=== PATIENT | male | born 1985 | race Caucasian/White ===

== ENCOUNTER 2018-04-27 20:40 | Inpatient (IN) | payer OTHER ==
[~2018-04-27] VITALS: Ht 188 cm; Wt 90.7 kg
--- NOTE | 2018-04-27 21:05 | NUR ---
PRE ADMISSION NOTE Pt is a 32 y/o male seen at intake. Pt is A&Ox4 and can ambulate with steady gait. Pt appears flushed, anxious and presents with nausea with increased HR. Pt reports drinking Smirnoff vodka 750 ml daily for 1 month, last intake of 1 pint this monring. Pt reports going to the ER d/t severe intoxication and receiving Librium. Pt reports also taking "9 pills" of Librium this morning and afternoon. Pt reports that he was taking 40-50 capsules or 50 g of Kratom daily for 6 months, last intake on 04/25/18. Pt states, "I'm most uncomfortable right now because of the Kratom." Pt denies history of allergies. Pt reports history of seizures r/t withdrawal, DT, hallucinations in September 2017. Pt reports PMH of pancreatitis and left knee surgery. Vitals: BP 131/73, HR 97, 02 98%, RR 18, T 98.5, and denies pain. Pt is stable to come to unit. Will endorse care to primary care nurse for continuation of care upon arrival on unit.
--- NOTE | 2018-04-27 21:30 | NUR ---
ADMISSION NOTE Pt is a 32 y/o male who is being admitted for medically supervised withdrawal from ETOH and Opiates. The pt is mildly intoxicated from ETOH and is moderately experiencing s/s of withdrawal. However, pt is not intoxicated from Opiates and is severely experiencing s/s of withdrawal. Pt appears disheveled and unkempt. He is flushed and sweating. Pt c/o anxiety and body aches. He is A/O to person, place, time, and purpose. Pt states that common withdrawal symptoms typically include sweats, chills, body aches, restless legs, anxiety, insomnia, hallucinations, and DTS. Pt does state that he has a h/o withdrawal induced seizures. Pt states the last time I went through withdrawals in September I had a small seizure, I got the DTs, and I began to hallucinate. It was awful. Pt states current substance use as follows: 1. ETOH: 750ml of Vodka daily for the past month. Pt states last drink was 473ml on 04/27/18 at 0900. He first began drinking 2 yrs ago. 2. Kratom: 50g daily for the past 6 months. Pt states the last use was 50g on 04/25/18. He first began using 6 mos ago. Pt states that he seeking treatment today because I am tired of feeling like shit. I constantly feel beaten and broken. Pt states that he stan with stress in his life by drinking. Pt knows his behavior is self destructive. It has ruined my relationship with my family and my girlfriend, and if I dont stop it will ruin my job. Pt states that his family threatened to cut him off if he didnt get help and his girlfriend has already left him. 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 Pt states that he is ready to focus on recovery. I cant fuck this up. I want to feel better and I want to put my life back together. Pt states they are willing to go AA and to an Outpatient Program once he leaves [facility]. Pt also states that his family is a good support system for him. V/S: P:97, RR:16, SPO2:98, BP:131/73. Pt denies any pain. Pts pulse is strong and regular. Pts respirations are unlabored and even. Skin is intact. Pt follows a regular diet while at home. Pt states NKA. Pt denies smoking cigarettes, but does vape. Pt does not have a PCP or a psychiatrist. Pt did have pancreatitis sometime in October of 2016. Pt has also had ACL knee surgery at the beginning of 2017. Pt denies all other medical and psychiatric Hx. Pt was educated on the plan of care including detox, group and 1:1 therapy, and discharge planning. Pt encouraged to be open and honest and verbalize what is feeling both physically and mentally. He was given positive reinforcement and support for his choice to seek recovery.
[2018-04-27] MEDS ORDERED: BUPRENORPHINE HCL 2 MG TAB.SUBL SL ONE (22:00)
[2018-04-27] MEDS ORDERED: MAGNESIUM HYDROXIDE 30 ML LIQUID UDC PO PRN (22:00)
[2018-04-27] MEDS ORDERED: ONDANSETRON ODT 4 MG TAB.RAPDIS SL PRN (22:00)
[2018-04-27] MEDS ORDERED: LOPERAMIDE HCL 2 MG CAPSULE PO PRN ×2 (22:00)
[2018-04-27] MEDS ORDERED: DIAZEPAM 5 MG TABLET PO PRN (22:00)
[2018-04-27] MEDS ORDERED: LORAZEPAM 2 MG/1 ML VIAL IM PRN (22:00)
[2018-04-27] MEDS ORDERED: THIAMINE HCL 200 MG/2 ML VIAL IM ONE (22:00)
[2018-04-27] MEDS ORDERED: ACETAMINOPHEN 325 MG TABLET PO PRN (22:00)
[2018-04-27] MEDS ORDERED: DIAZEPAM 10 MG TABLET PO PRN (22:00)
[2018-04-27] MEDS ORDERED: BUPRENORPHINE HCL 2 MG TAB.SUBL SL PRN (22:00)
[2018-04-27] MEDS ORDERED: MAG HYDROX/AL HYDROX/SIMETH 30 ML LIQUID UDC PO PRN (22:00)
[2018-04-27] MEDS ORDERED: MIRALAX 17 GM POWD.PACK PO PRN (22:00)
[2018-04-27 22:28] LABS: *AMPHETAMINE, URINE NEGATIVE (NEGATIVE); *BARBITURATE, URINE NEGATIVE (NEGATIVE); *CANNABINOID, URINE NEGATIVE (NEGATIVE); *COCCAINE, URINE NEGATIVE (NEGATIVE); *OPIATE, URINE NEGATIVE (NEGATIVE); *PHENCYCLIDINE SCREEN,URINE NEGATIVE (NEGATIVE)
[2018-04-27] MEDS: DIAZEPAM 10 MG TABLET PO PRN (22:55)
--- NOTE | 2018-04-27 22:55 | NUR ---
PRN VALIUM ADMINISTRATION Valium 20mg given for CIWA 28. Pt c/o anxiety, agitation, tremors, sweats, abdominal cramping, nausea, body aches, "foggy thinking", and difficulty conecntrating. V/S: T:98.3, P:70, RR:16, SPO2:100, BP:139/78. Will reassess pt in 1 hr.
--- NOTE | 2018-04-27 23:55 | NUR ---
PRN VALIUM REASSESSMENT Pt states only mild relief from s/s. Pt states they "still feel pretty crappy". Pt states feeling restless, pins and needles, anxiety, insomnia, sweats, and hot flashes. Will administer Clonidine and Benadryl
[2018-04-27] MEDS: diphenhydrAMINE 50 MG CAPSULE PO PRN (23:56)
[2018-04-27] MEDS: CLONIDINE HCL 0.1 MG TABLET PO PRN (23:56)
--- NOTE | 2018-04-27 23:56 | NUR ---
PRN CLONIDINE AND BENADRYL ADMINISTRATION Clonidine 0.1mg and Benadryl 50mg. Pt c/o sweats, anxiety, and agitation. Will reassess pt in 1 hr.
--- NOTE | 2018-04-28 | NUR ---
CIWA AND COWS ASSESSMENT CIWA 28 and COWS 19. Pt c/o anxiety, agitation, tremors, sweats, abdominal cramping, nausea, body aches, "foggy thinking", and difficulty concentrating. V/S: T:98.3, P:70, RR:16, SPO2:100, BP:139/78.
[2018-04-28 00:03] LABS: BASOPHILS % (AUTO) 0.3 % (0.0-2.0); EOSINOPHILS % (AUTO) 0.3 % (0.0-7.0); HEMATOCRIT 45.9 % (36.7-47.1); HEMOGLOBIN 15.9 g/dL (12.5-16.3); LYMPHOCYTES # (AUTO) 3.1 K/uL (20.0-40.0); LYMPHOCYTES % (AUTO) 31.4 % (20.5-51.5); MEAN CORPUSCULAR HEMOGLOBIN 32.1 uug (23.8-33.4); MEAN CORPUSCULAR HGB CONC 35 g/dL (32.5-36.3); MEAN CORPUSCULAR VOLUME 92.7 fL (73.0-96.2); MONOCYTES # (AUTO) 1.1 K/uL (2.0-10.0); MONOCYTES % (AUTO) 10.9 % (0.0-11.0); NEUTROPHILS # (AUTO) 5.7 K/uL (1.8-8.9); NEUTROPHILS % (AUTO) 57.1 % (38.5-71.5); PLATELET COUNT (AUTO) 262 K/uL (152-348); RED BLOOD CELL COUNT(AUTO) 4.96 MIL/uL (4.06-5.63); WHITE BLOOD COUNT (AUTO) 9.9 K/uL (3.6-10.2)
[2018-04-28 00:06] VITALS: BP 139/78
[2018-04-28 00:39] LABS: BILIRUBIN,TOTAL 0.8 mg/dL (0.2-1.0); MAGNESIUM 1.8 mg/dL (1.8-2.4); POTASSIUM 3.6 mmol/L (3.5-5.1); TOTAL PROTEIN, SERUM 8.1 g/dL (6.4-8.2)
--- NOTE | 2018-04-28 00:56 | NUR ---
PRN CLONIDINE AND BENADRYL REASSESSMENT Pt still feels anxious and continues to pace in the hallways. Advised pt to maybe take a shower to help relax him. Pt agreed. Will continue to monitor pt.
[2018-04-28] MEDS: METHOCARBAMOL 750 MG TABLET PO PRN (01:13)
[2018-04-28] MEDS: HYDROXYZINE PAMOATE 25 MG CAPSULE PO PRN (01:13)
--- NOTE | 2018-04-28 01:13 | NUR ---
PRN ROBAXIN AND VISTARIL ADMINISTRATION Robaxin 750mg and Vistaril 50mg given for body aches and anxiety/agitation. Pt c/o 6/10 generalized pain. Will reassess pt in 1 hr.
--- NOTE | 2018-04-28 02:13 | NUR ---
PRN ROBAXIN AND VISTARIL REASSESSMENT' Pt is in bed w/ his eyes closed. Pt's respirations are unlabored and even.
[2018-04-28 03:45] VITALS: BP 133/77
--- NOTE | 2018-04-28 03:45 | NUR ---
CIWA AND COWS ASSESSMENT CIWA 25 abd COWS 17. Pt c/o anxiety, agitation, tremors, sweats, abdominal cramping, nausea, body aches, "foggy thinking", and difficulty concentrating. V/S: T:98.4, P:82, RR:16, SPO2:99, BP:133/77.
[2018-04-28] MEDS: DIAZEPAM 10 MG TABLET PO PRN (03:54)
--- NOTE | 2018-04-28 03:54 | NUR ---
PRN VALIUM ADMINISTRATION Valium 20mg given for CIWA 25 and COWS 17. Pt presenting w/ insomnia and is pacing the hallways. Will reassess pt in 1hr.
--- NOTE | 2018-04-28 04:54 | NUR ---
PRN VALIUM REASSESSMENT Pt is in bed w/ his eyes closed. Pt's respirations are unlabored and even.
[2018-04-28 04:59] LABS: THYROID STIMULATING HORMONE 2.741 mIU/mL (0.358-3.740)
--- NOTE | 2018-04-28 07:11 | NUR ---
END OF SHIFT NOTE Endorsed pt to oncoming nurse. Pt is a 32 y/o male A/O to person, place, time, and purpose. Pt was admitted for medically supervised withdrawal from ETOH and Kratom. Pt was midly intoxicated from ETOH upon arrival, but did show signs of withdrawal from Opiates. Pt began to present w/ anxious mood, agitation, restlessness, body aches, sweats, chills, hot flashes, tremors, nausea, insomnia, and a flat affect. PRN Valium 20mg x 2, Clonidine 0.1mg, Benadryl 50mg, Robaxin 750mg, and Vistaril 50mg were given and noted partially effective. Pt denies any S/I and H/I. Pts fluid intake was 900ml and he slept for 3hrs. Last CIWA 25 and COWS 17 @ 0345. Pt stated that at home he used to take 300-600mg of Gabapentin and Trazodone 100-150mg, endorsed this oncoming nurse. Call light is within reach. Pt was educated on keeping an open line of communication.
--- NOTE | 2018-04-28 07:30 | NUR ---
Start of Shift Head Control Clerk received report on 32 year old male admitted to [facility] on 04/27/18 for medical management of ETOH and Kratum withdrawals. Pt endorses NKDA, full code and regular diet. Endorses a PMH history positive for Pancreatitis. Denies PPH. Pt to be started on a Valium taper this morning, last CIWA 25 and COWS 14, per NOC report. Pt was administered 20mg Valium(withdrawals) x2, Clonidine(anxiety), Benadryl(insomnia), Robaxin(myalgia) and Vistaril(anxiety) as PRN medications on NOC, per report. Head Control Clerk encounters pt in pts room with pt resting with eyes closed. Even and unlabored respirations noted. Bed in low position with wheels locked and side rails up x2. Will continue to monitor, support and encourage according to plan of care
[2018-04-28 08:00] VITALS: BP 123/84
--- NOTE | 2018-04-28 08:00 | NUR ---
CIWA 21/COWS 23 Pt is diaphoretic, tremulous, anxious, restless, with piloerection of the skin and stuffy nose and watery eyes and complaints of nausea, myalgia, chills and tactile hallucinations. Will continue to monitor, support and encourage according to plan of care.
[2018-04-28] MEDS ORDERED: TUBERCULIN,PURIF.PROT.DERIV. 5 TU/0.1 ML TEST ID ONE (09:00)
[2018-04-28] MEDS ORDERED: 5 DAY TAPER VALIUM-SERENITY PROTOCOL PO PRN (09:00)
[2018-04-28] MEDS: FOLIC ACID 1 MG TABLET PO SCH (09:16)
[2018-04-28] MEDS: DIAZEPAM 10 MG TABLET PO SCH ×4 (09:16→20:39)
[2018-04-28] MEDS: MULTIVITAMINS,THERAPEUTIC TABLET PO SCH (09:16)
[2018-04-28] MEDS: THIAMINE HCL 100 MG TABLET PO SCH (09:16)
--- NOTE | 2018-04-28 09:16 | NUR ---
PRN Subutex Pt with a COWS of 23. Pt is diaphoretic, tremulous with myalgia and nausea. Infant Lead Teacher administered medication per prder with pt tolerating well. Will continue to monitor, support and encourage according to plan of care.
--- NOTE | 2018-04-28 09:46 | NUR ---
PRN Re-Assessment Pt endorses relief from the severity of symptoms, " I fell better." Will continue to monitor, support and encourage according to plan of care.
[2018-04-28] MEDS ORDERED: GABA600T PO (10:52)
[2018-04-28 12:00] VITALS: BP 136/79
--- NOTE | 2018-04-28 12:00 | NUR ---
DEBBYWA 18/COWS 19 Pt is diaphoretic, tremulous, anxious, restless and with complaints of chills, nausea and tactile hallucinations. Will continue to monitor, support and encourage according to plan of care.
[2018-04-28] MEDS ORDERED: 5 DAY TAPER BUPRENORPHINE -SERENITY PROTOCOL SL PRN (13:00)
[2018-04-28] MEDS ORDERED: Medication Not On Formulary EA (Gabapentin (Neurontin) 600 MG) PO SCH (13:15)
[2018-04-28] MEDS: GABAPENTIN 300 MG CAPSULE PO SCH ×2 (13:34→17:45)
[2018-04-28] MEDS: BUPRENORPHINE HCL 2 MG TAB.SUBL SL SCH ×3 (13:35→20:39)
[2018-04-28 16:00] VITALS: BP 156/92
--- NOTE | 2018-04-28 16:00 | NUR ---
CIWA 17/COWS 16 Pt is diaphoretic, tremulous, anxious, restless, and complains of VH, TH and chills and myalgia. Will continue to monitor, support and encourage according to plan of care.
--- NOTE | 2018-04-28 19:56 | NUR ---
End of Shift Drill Press Operator provided report on 32 year old male admitted to [facility] on 04/27/18 for medical management of ETOH and Kratum withdrawals. Pt endorses NKDA, full code and regular diet. Endorses a PMH history positive for Pancreatitis. Denies PPH. Pt to be started on a Valium and Subutex taper this am, with last CIWA 17 and COWS 16. Pt was administered Subutex PRN on this shift. Pt has been A/O x4 and able to make needs known. Pt is anxious and restless, unable to sit still. Pt with an anxious affect and depressed mood. Pt is tremulous, diaphoretic, with myalgia, TH and VH and chills. Bed in low position with wheels locked and side rails up x2.
--- NOTE | 2018-04-28 19:57 | NUR ---
Start of shift note Received report from day shift nurse. Pt is a 32 yo male, A+Ox4, presenting to [facility] for medically supervised ETOH withdrawal. Pt was also using Kratom. Pt noted with restlessness, agitation, anxiety, and fine tremors. Pt has HX of pancreatitis ans seizure which will be monitored during shift. Pt is on 5 day Valium and 5 day Subutex tapers, tolerated well. Respirations even and unlabored. Will continue to monitor.
[2018-04-28 20:14] VITALS: BP 138/72
--- NOTE | 2018-04-28 20:14 | NUR ---
COWS and CIWA Assessment COWS: 11and CIWA: 11. Pt noted with pulse 94, flush in face, restlessness, enlarged pupils, stomach cramps, fine tremors, anxiety, agitation, and sweat on brow. Respirations even and unlabored. Will continue to monitor.
--- NOTE | 2018-04-29 00:19 | NUR ---
V/S refused and COWS and CIWA Assessment deferred for sleep. Respirations even and unlabored. Will continue to monitor.
[2018-04-29] MEDS: METHOCARBAMOL 750 MG TABLET PO PRN (03:40)
--- NOTE | 2018-04-29 03:46 | NUR ---
PRN Robaxin Pt c/o Right shoulder muscle aches 03/19 and requested for PRN Robaxin. Medication given and tolerated well. Will reassess within 1 HR. Will continue to monitor.
--- NOTE | 2018-04-29 04:46 | NUR ---
PRN Robaxin Reassessment Medication effective. Pt expresses reduction of right shoulder muscle ache to 5/10. No s/s of ASE noted at this time. Respirations even and unlabored. Will continue to monitor.
[2018-04-29 04:49] VITALS: BP 132/74
--- NOTE | 2018-04-29 04:51 | NUR ---
COWS and CIWA Assessment COWS: 9 and CIWA: 9. Pt noted with pulse 91, flush in face, restlessness, enlarged pupils, fine tremors, anxiety, agitation, sweat on brow, and mild diffuse discomfort. Respirations even and unlabored. Will continue to monitor.
--- NOTE | 2018-04-29 07:00 | NUR ---
End of shift note Pt was continuously noted with anxiety, agitation, and restlessness. Pt remained in room for majority of shift except to go smoke on smoking patio, to get food from kitchen, and to interact with other patients in recreational room. Pt remained compliant and cooperative with all aspects of treatment. Pt was given PRN Robaxin @0346. Pt remains on 5 day Valium and 5 day Subutex tapers, tolerated well. Pt slept for a total of 7 HRS. Last COWS: 9 and Last CIWA: 9 @0450. Respirations even and unlabored. Will endorse to day shift nurse.
--- NOTE | 2018-04-29 07:30 | NUR ---
START OF SHIFT Pt 32 y/o male admitted for medically supervised withdrawal from etoh and opiates. Pt received in room on bed with eyes closed resting. Pt alert and oriented to name, place, and time. Perrla. Skin warm and moist to touch. Respirations even and unlabored. Appears disheveled and unkempt. Clothing scattered throughout the room. Encouraged to maintain hygiene. Anxious and restless. Pressured speech. Not able to sit still. It was reported that pt slept for 7 hours last night. Last cows=9 ciwa=9 @0400. Pt is on a 5 day valium taper and is on day 2. Pt also on a 5 day subutex taper and is on day 2. Bed on lowest position with side rails x2 up for safety. Call light within reach.
[2018-04-29 08:00] VITALS: BP 128/78
--- NOTE | 2018-04-29 08:00 | NUR ---
COWS CIWA ASSESSMENT cows=12 ciwa =11. Anxious and restless. Pacing. Fidgety. States feels irritable. Bilateral hand tremors noted. Complaints of intermittent perspiration and chills. Complaints of body aches and generalized discomfort.
[2018-04-29] MEDS: DIAZEPAM 10 MG TABLET PO SCH ×3 (08:34→21:54)
[2018-04-29] MEDS: THIAMINE HCL 100 MG TABLET PO SCH (08:34)
[2018-04-29] MEDS: MULTIVITAMINS,THERAPEUTIC TABLET PO SCH (08:34)
[2018-04-29] MEDS: GABAPENTIN 300 MG CAPSULE PO SCH ×3 (08:34→16:20)
[2018-04-29] MEDS: FOLIC ACID 1 MG TABLET PO SCH (08:34)
[2018-04-29] MEDS: BUPRENORPHINE HCL 2 MG TAB.SUBL SL SCH ×3 (08:35→21:54)
[2018-04-29 11:06] LABS: HEPATITIS B SURFACE AG Negative (Negative)
[2018-04-29 12:00] VITALS: BP 140/82
--- NOTE | 2018-04-29 12:00 | NUR ---
COWS CIWA ASSESSMENT cows=12 ciwa=14. Bilateral hand tremors noted. Complaints of generalized body aches and discomfort. Anxious and restless. Pacing. Pressured speech noted.
[2018-04-29] MEDS: CLONIDINE HCL 0.1 MG TABLET PO PRN (12:14)
[2018-04-29] MEDS: HYDROXYZINE PAMOATE 25 MG CAPSULE PO PRN (12:15)
--- NOTE | 2018-04-29 12:16 | NUR ---
PRN CATAPRES VISTARIL Pt states feels very anxious. me=092/78 p=110. Catapres po prn per MD order given and tolerated well. Vistaril po prn per MD order given and tolerated well.
--- NOTE | 2018-04-29 13:30 | NUR ---
Therapist prompted client to attend group therapy.
[2018-04-29 16:00] VITALS: BP 138/80
--- NOTE | 2018-04-29 16:00 | NUR ---
COWS CIWA ASSESSMENT cows=12 ciwa=13. Bilateral hand tremors. Anxious and restless. Pressured speech. Pacing. Complaints of generalized discomfort.
--- NOTE | 2018-04-29 19:11 | NUR ---
END OF SHIFT Pt 32 y/o male admitted for medically supervised withdrawal from etoh and opiates. Pt alert and oriented to name, place, and time. Perrla. Skin warm and moist to touch. Respirations even and unlabored. Appears disheveled and unkempt. Food wrappings scattered throughout the room. Encouraged to maintain hygiene. Anxious and restless. Pressured speech. Pacing throughout the day. Complaints of generalized discomfort and body aches. Isolative with minimal peer interaction. Pt attended group activity. Pt medication compliant and tolerated well. Pt is on a 5 day valium taper and is on day 2. Pt also on a 5 day subutex taper and is on day 2. Last cows=12 ciwa=13. Bed on lowest position with side rails x2 up for safety. Kavon light within reach.
--- NOTE | 2018-04-29 19:12 | NUR ---
Start of shift note Received report from day shift nurse. Pt is a 32 yo male, A+Ox4, presenting to [facility] for medically supervised ETOH withdrawal. Pt was also using Kratom. Pt noted with restlessness, agitation, and anxiety. Pt has HX of pancreatitis, and seizure which will be monitored during shift. Pt is on 5 day Valium and 5 day Subutex tapers, tolerated well. Respirations even and unlabored. Will continue to monitor.
[2018-04-29 20:14] VITALS: BP 149/79
--- NOTE | 2018-04-29 20:14 | NUR ---
COWS and CIWA Assessment COWS: 8 and CIWA: 8. Pt noted with pulse 104, chills, sweat on brow, restlessness, enlarged pupils, fine tremors, anxiety, and agitation. Respirations even and unlabored. Will continue to monitor.
--- NOTE | 2018-04-30 00:24 | NUR ---
V/S refused and COWS and CIWA Assessment deferred for sleep. Respirations even and unlabored. Will continue to monitor.
--- NOTE | 2018-04-30 04:49 | NUR ---
V/S refused and COWS and CIWA Assessment deferred for sleep. Respirations even and unlabored. Will continue to monitor.
--- NOTE | 2018-04-30 07:00 | NUR ---
End of shift note Pt was continuously noted with anxiety, agitation, and restlessness. Pt remained in room for majority of shift except to get food from kitchen and to go smoke on smoking patio. Pt remained cooperative and compliant with all aspects of treatment. Pt was given PRN Benadryl and Clonidine @2224. Pt has completed 5 day Ativan taper, tolerated well, and is due for discharge today. Pt slept for a total of 7 HRS. Last CIWA: 6 @2011. Respirations even and unlabored. Will endorse to day shift nurse. Addendum: 04/30/18 at 0734 by RAHUL ORANTES LVN ERROR, incorrect patient
--- NOTE | 2018-04-30 07:01 | NUR ---
End of shift note Pt was continuously noted with restlessness, anxiety, and agitation. Pt remained in room for majority of shift except to go smoke on smoking patio and to get food from kitchen. Pt remained compliant and cooperative with all aspects of treatment. Pt was not given any PRN medications during shift. Pt is on 5 day Valium and 5 day Subutex tapers, tolerated well. Pt slept for a total of 4 HRS. Last COWS: 8 and Last CIWA: 8 @2013. Respirations even and unlabored. Will endorse to day shift nurse.
--- NOTE | 2018-04-30 08:00 | NUR ---
Start of Shift Notes/COWS/CIWA Assessment: Received endorsement from night nurse. Patient is a 32 year old male admitted for ETOH and opiate withdrawal who was placed on a 5-day Valium and 5-day Subutex taper as ordered. No adverse reactions noted. Per night report, no PRNs given during the night. Last COWS 8/CIWA 8. Slept for a total of 4 hours. Patient received in his room. Awake, alert and verbally responsive. Denies S/I or H/I. No AV hallucinations noted. Patient appears disheveled, flushed with uncombed hair. Garbage was found in the room. Worried facial expression. Complains of intermittent perspiration, chills, hot flashes, and restlessness. COWS 14/CIWA 15. Educated patient on his current plan of care for the day and his medication regimen. Encouraged oral fluid intake and encouraged group participation to learn new skills to prevent relapse. Will continue to monitor and provide support.
[2018-04-30 09:00] VITALS: BP 122/72
[2018-04-30] MEDS ORDERED: BUPRENORPHINE HCL 2 MG TAB.SUBL SL SCH (09:00)
[2018-04-30] MEDS: THIAMINE HCL 100 MG TABLET PO SCH (09:14)
[2018-04-30] MEDS: FOLIC ACID 1 MG TABLET PO SCH (09:14)
[2018-04-30] MEDS: DIAZEPAM 5 MG TABLET PO SCH ×4 (09:14→22:48)
[2018-04-30] MEDS: MULTIVITAMINS,THERAPEUTIC TABLET PO SCH (09:14)
[2018-04-30] MEDS: GABAPENTIN 300 MG CAPSULE PO SCH ×3 (09:14→16:36)
[2018-04-30 12:00] VITALS: BP 136/79
--- NOTE | 2018-04-30 12:00 | NUR ---
COWS/CIWA Assessment: COWS 10/CIWA 13, patient continues to present with s/s of withdrawal m/b gross tremors, anxiety, agitation, intermittent perspiration, chills, hot flashes, myalgia and generalized discomfort. Will continue with current meds as ordered. Will continue to monitor.
[2018-04-30] MEDS: BUPRENORPHINE HCL 2 MG TAB.SUBL SL SCH ×2 (14:26→22:48)
[2018-04-30 16:00] VITALS: BP 135/90
--- NOTE | 2018-04-30 16:52 | NUR ---
COWS/CIWA Assessment: COWS 8/CIWA 10, patient continues to present with s/s of withdrawal mb gross tremors, anxiety, agitation, diaphoresis, anhedonia and generalized discomfort. Will continue with detox meds as currently ordered.
--- NOTE | 2018-04-30 19:08 | NUR ---
End of Shift Notes: Patient continues to be on 5-day Ativan and 5-day Subutex as ordered to manage symptoms related to ETOH and opiate withdrawal. VS monitored closely. No significant abnormalities noted. Withdrawal symptoms were closely monitored. Initial COWS 14/CIWA 15, patient presented with increased anxiety, emotional amplitude, restlessness, myalgia, difficulty concentrating, malaise, fatigue, diaphoresis, chills, hot flashes, gross tremors and intermittent perspiration. Last COWS 8/CIWA 10. Patient verbalized that Subutex and Valium has been effective in reducing his withdrawal symptoms. Able to participate in group and activities. All needs met and attended. Appetite good. Will continue to monitor closely.
--- NOTE | 2018-04-30 19:09 | NUR ---
Start of shift note Received report from day shift nurse. Pt is a 32 yo male, A+Ox4, presenting to [facility] for medically supervised ETOH withdrawal. Pt was also using Kratom. Pt has HX of pancreatitis, ACL surgery, and seizure which will be monitored during shift. Pt is on 5 day Valium and 5 day Subutex tapers tolerated well. Respirations even and unlabored. Will continue to monitor.
[2018-04-30 20:12] VITALS: BP 146/77
--- NOTE | 2018-04-30 20:12 | NUR ---
COWS and CIWA Assessment COWS: 8 and CIWA: 8. Pt noted with chills, sweat, restlessness, enlarged pupils, mild diffuse discomfort, stuffy nose, fine tremors, anxiety and agitation. Respirations even and unlabored. Will continue to monitor.
--- NOTE | 2018-05-01 00:47 | NUR ---
V/S refused and COWS and CIWA Assessment deferred for sleep. Respirations even and unlabored. Will continue to monitor.
--- NOTE | 2018-05-01 04:50 | NUR ---
V/S refused and COWS and CIWA Assessment deferred for sleep. Respirations even and unlabored. Will continue to monitor.
--- NOTE | 2018-05-01 07:00 | NUR ---
End of shift note Pt was continuously noted with restlessness, anxiety, and agitation. Pt remained in room for majority of shift except to go smoke on smoking patio, to get food from kitchen and to interact with other patients in recreational room. Pt remained cooperative and compliant with all aspects of treatment. Pt was not given any PRN medications during shift. Pt is on 5 day Valium and 5 day Subutex tapers, tolerated well. Pt slept for a total of 7 HRS. Last COWS: 8 and Last CIWA: 8 @2011. Respirations even and unlabored. Will endorse to day shift nurse.
--- NOTE | 2018-05-01 08:00 | NUR ---
Start Of Shift / COWS 8 and CIWA 8 Recieved 32 y/o M admitted on 04/27/18 for medically supervised ETOH, and kratom withdrawal. Pt continues on a 5 day subutex and valium taper and tolerating well; today is the 4th day. Pt presents anxiety, agitation, irritability, restlessness, intermittent sweating and tremors noted. Pt reports meds as effective for s/s of withdrawal. Pt reports having high anxiety d/t issues relating to work and living situation. Educated pt with plan of care and med regimen. Side rails upx2, bed in low position, and call light is within reach. Safety measures in place. Will continue to monitor.
[2018-05-01 08:17] VITALS: BP 133/78
[2018-05-01] MEDS: THIAMINE HCL 100 MG TABLET PO SCH (09:33)
[2018-05-01] MEDS: MULTIVITAMINS,THERAPEUTIC TABLET PO SCH (09:33)
[2018-05-01] MEDS: GABAPENTIN 300 MG CAPSULE PO SCH ×3 (09:33→17:33)
[2018-05-01] MEDS: DIAZEPAM 5 MG TABLET PO SCH ×3 (09:34→21:32)
[2018-05-01] MEDS: BUPRENORPHINE HCL 2 MG TAB.SUBL SL SCH ×3 (09:35→21:32)
[2018-05-01] MEDS: FOLIC ACID 1 MG TABLET PO SCH (09:38)
[2018-05-01] MEDS: CLONIDINE HCL 0.1 MG TABLET PO PRN ×2 (10:54→19:38)
--- NOTE | 2018-05-01 10:54 | NUR ---
PRN clonidine 0.1 mg po prn given for increased anxiety, sense of panic; pt states, "I felt like the segundo were caving in on me." Will monitor and reassess.
--- NOTE | 2018-05-01 11:54 | NUR ---
Reassessment Pt verbalized the med was not effective and states, "I went into group and had another anxiety attack. I am just still feeling so anxious." Pt appears flushed, fidgety, highly anxious. Will continue to monitor.
--- NOTE | 2018-05-01 12:00 | NUR ---
COWS 14 and CIWA 13 Pt presents increased anxiety, sense of panic, agitation, irritability, restlessness, intermittent sweating and tremors noted. Vistaril prn will be given. Safety measures in place.
[2018-05-01 12:30] VITALS: BP 141/79
[2018-05-01] MEDS: HYDROXYZINE PAMOATE 25 MG CAPSULE PO PRN ×2 (12:49→19:38)
--- NOTE | 2018-05-01 12:49 | NUR ---
PRN Vistaril 50 mg po prn given with scheduled gabapentin 600 mg po prn. Pt c/o increased anxiety, appears flushed and is highly anxious. Will monitor and reassess.
--- NOTE | 2018-05-01 13:49 | NUR ---
Reassessment Pt is in activity room with peers; appears to be much more relaxed and calm. Will continue to monitor.
[2018-05-01 16:00] VITALS: BP 147/85
--- NOTE | 2018-05-01 16:30 | NUR ---
COWS 14 and CIWA 13 Pt is more hyperactive, exited group and presents increased anxiety, sense of panic, agitation, irritability, restlessness, intermittent sweating and tremors noted. Refuses prns at this time. Safety measures in place. Will continue to monitor.
--- NOTE | 2018-05-01 19:38 | NUR ---
PRN medications Px received Vistaril 50 mg PO and Clonidine 0.1 mg PO for increased anxiety. will continue to monitor
--- NOTE | 2018-05-01 19:40 | NUR ---
Start of Shift Note Received a 32 y/o male px, admitted for medically supervised withdrawal from ETOH and Kratom. Px was placed on 5 day Valium taper and 5 day Subutex taper. Px is tolerating them. Last reported COWS 14 and CIWA 13 by AM shift nurse. During the rounds at 1940, px is awake inside his room standing. Px appears very anxious. He is unshaven. Unfinished drinks noted on top of the bed side table. He states that his anxiety is 10/10 and he is like going into panic attack. He also complains of sweats and chills at night. Bed is on the lowest position, side rails up 2x and call light within reach. Well continue to monitor
--- NOTE | 2018-05-01 19:48 | NUR ---
COWS 14 and CIWA 13 Pt presents increased anxiety, sense of panic, agitation, irritability, restlessness, intermittent sweating and tremors noted. Safety measures in place.COWS 14 and CIWA 13. Pt verbalized he experienced panic attack during groups and was tearful explaining, "I have so much weighing down on me. I have so much to lose and so much pressure." Vistaril 50 mg, and clonidine 0.1 mg po prns given. Safety measures in place. Will continue to monitor. Addendum: 05/01/18 at 3 by ARIELLA MATIAS RN End of Shift
[2018-05-01 20:00] VITALS: BP 122/78
--- NOTE | 2018-05-01 20:00 | NUR ---
COWS 12 and CIWA 13 Upon assessment, Px appears very anxious. He states that his anxiety is 10/10 and he is like going into panic attack. He also complains of sweats and chills at night. NC= 102. will continue to monitor
--- NOTE | 2018-05-01 20:40 | NUR ---
PRN Vistaril and Clonidine reassessment Px stated that his anxiety is improving. will continue to monitor
[2018-05-02] VITALS: BP 119/79
--- NOTE | 2018-05-02 | NUR ---
COWS and CIWA deferred COWS and CIWA deferred due to the px is asleep, to assess if the px is awake per doctor's order. will continue to monitor
[2018-05-02 04:00] VITALS: BP 127/82
--- NOTE | 2018-05-02 04:00 | NUR ---
COWS 8 and CIWA 10 Px woke up, appears anxious. He states that his anxiety is about 6-7/10. He still complains of sweats and chills. WV= 101. will continue to monitor
--- NOTE | 2018-05-02 07:05 | NUR ---
End of Shift Note During the shift at 1938, px received Clonidine 0.1 mg PO and Vistaril 50 mg PO for high anxiety. They were effective. Oral intake of 1 L, voided 3x, No BM. Px slept for 5 hours. Last COWS 8 and CIWA 10. Bed on lowest position, side rails up 2x, and call light within reach. Px endorsed to AM shift nurse.
--- NOTE | 2018-05-02 07:50 | NUR ---
START OF SHIFT NOTE Received report from night nurse, 32 year old male admitted for ETOH/Kratom withdrawal. Patient continues on 5 days Valium and Subutex taper tolerating well. Per endorsement patient received PRN Vistaril, Clonidine, effective per night nurse, slept for 5 hours and last CIWA score was 10, COWS-8. Received patient alert awake oriented x4 presented with labile facial expression, anhedonia, chills, anxiety, agitation, disheveled, bilateral hand tremors noted. Patient is due for schedule medications. All safety measures in place, Call light within reach. Will cont to monitor.
[2018-05-02 08:00] VITALS: BP 107/66
[2018-05-02] MEDS: DIAZEPAM 5 MG TABLET PO SCH ×2 (08:25→20:52)
[2018-05-02] MEDS: THIAMINE HCL 100 MG TABLET PO SCH (08:25)
[2018-05-02] MEDS: FOLIC ACID 1 MG TABLET PO SCH (08:25)
[2018-05-02] MEDS: GABAPENTIN 300 MG CAPSULE PO SCH ×3 (08:25→16:35)
[2018-05-02] MEDS: MULTIVITAMINS,THERAPEUTIC TABLET PO SCH (08:25)
--- NOTE | 2018-05-02 08:25 | NUR ---
CIWA/COWS ASSESSMENT Patient presented with anxiety, agitation, restless, sweats, anhedonia, fatigue, CIWA-9, COWS-7. Patient was given his scheduled medications. Will cont to monitor.
[2018-05-02] MEDS ORDERED: BUPRENORPHINE HCL 2 MG TAB.SUBL SL SCH (09:00)
--- NOTE | 2018-05-02 10:36 | NUR ---
Therapist prompted client to attend all group therapy sessions.
[2018-05-02 12:00] VITALS: BP 137/85
--- NOTE | 2018-05-02 12:00 | NUR ---
CIWA/COWS ASSESSMENT Patient c/o increased in anxiety, agitation, restless, chills, sweats, anhedonia, fatigue, CIWA-10, COWS-8. Will cont to monitor.
[2018-05-02] MEDS: HYDROXYZINE PAMOATE 25 MG CAPSULE PO PRN ×2 (12:17→20:14)
[2018-05-02] MEDS: CLONIDINE HCL 0.1 MG TABLET PO PRN ×2 (12:18→20:15)
--- NOTE | 2018-05-02 12:18 | NUR ---
PRN CLONIDINE VISTARIL Patient c/o anxiety, agitation restless, hot cold sweats, PRN Vistaril 50mg PO and Clonidine 0.1mg PO given as ordered. Will cont to monitor and reassess.
--- NOTE | 2018-05-02 13:18 | NUR ---
CLONIDINE/VISTARIL REASSESSMENT Per patient medications were effective anxiety, agitation, restless, chills, sweats, improved.
[2018-05-02 16:00] VITALS: BP 142/88
--- NOTE | 2018-05-02 16:00 | NUR ---
DAHLIA/COWS ASSESSMENT CIWA-9, COWS-7. Patient reported anxiety, agitation, restless, bilateral hand tremors, sweats, anhedonia, fatigue, Patient is due for scheduled medication. Will cont to monitor. Addendum: 05/02/18 at 1611 by LAURA MUSTAFA [facility]- DAHLIA-9, COWS-9.
--- NOTE | 2018-05-02 19:25 | NUR ---
END OF SHIFT NOTE Gave report from night nurse, patient admitted for ETOH, kratom withdrawal. Patient continues with 5 days Valium, 5 days Subutex taper tolerating well. During shift patient received scheduled medications along with PRN Clonidine 0.1mg PO, Vistaril 50mg PO noted to be effective. Patient noted attending groups activities interacting with peers. Endorsed patient to night nurse in stable condition.
--- NOTE | 2018-05-02 19:30 | NUR ---
START OF SHIFT Pt is a 32 year old male admitted for ETOH/Kratom withdrawal. Patient continues on 5 days Valium and Subutex taper tolerating well. Per endorsement patient received PRN Vistaril, Clonidine, effective per day nurse, last CIWA score was 9, COWS-9. Received pt A/A/O x 4 ;C/O anxiety,restlessness,sweats and chills. Pt is compliant with medications. All safety measures in place, Call light within reach. Will continue to monitor.
[2018-05-02 20:00] VITALS: BP 137/79
--- NOTE | 2018-05-02 20:00 | NUR ---
COWS=9, CIWA=9. Pt is feeling anxious,restless,c/o having chills and sweat.
--- NOTE | 2018-05-02 20:15 | NUR ---
PRN MEDS Pt c/o anxiety and chills; prn visatril and clonidine given as ordered,b/p=137/79,pulse=94; will continue to monitor.
--- NOTE | 2018-05-02 21:15 | NUR ---
PRN REASSESSMENT Pt verbalizes a decrease in anxiety.PRN effective.
--- NOTE | 2018-05-03 | NUR ---
COWS/CIWA CIWA / CIWA deferred due to pt being asleep.Pt is calm and and resting in bed with eyes closed,no s/s of distress noted,v/s refused;will continue to monitor.
--- NOTE | 2018-05-03 06:54 | NUR ---
END OF SHIFT Pt is a 32 year old male admitted for ETOH/Kratom withdrawal. Pt received PRN Vistaril, Clonidine during the night and was effective. Last CIWA score was 9, COWS-9. Pt is A/A/O x 4 ; Pt is compliant with medications. Slept 7 hours,fluid intake was 796 mls,voided x 3,no BM reported.All safety measures in place, Call light within reach. Will continue to monitor.
--- NOTE | 2018-05-03 07:58 | NUR ---
START OF SHIFT NOTE Received report from night nurse, 32 year old male admitted for ETOH/Kratom withdrawal. Patient continues on 5 days Valium and Subutex taper tolerating well. Per endorsement patient received PRN Vistaril, Clonidine, effective per night nurse, slept for 7 hours and last CIWA score was 9, COWS-9. Received patient alert awake oriented x4 presented with flat facial expression, anhedonia, anxiety, agitation, disheveled, bilateral hand tremors noted. Patient is due for schedule medications. All safety measures in place, Call light within reach. Will cont to monitor.
[2018-05-03 08:00] VITALS: BP 125/77
[2018-05-03] MEDS: THIAMINE HCL 100 MG TABLET PO SCH (08:32)
[2018-05-03] MEDS: GABAPENTIN 300 MG CAPSULE PO SCH ×3 (08:32→16:30)
[2018-05-03] MEDS: FOLIC ACID 1 MG TABLET PO SCH (08:32)
[2018-05-03] MEDS: MULTIVITAMINS,THERAPEUTIC TABLET PO SCH (08:32)
[2018-05-03] MEDS: HYDROXYZINE PAMOATE 25 MG CAPSULE PO PRN ×3 (09:10→23:56)
[2018-05-03] MEDS: CLONIDINE HCL 0.1 MG TABLET PO PRN ×2 (09:14→21:21)
--- NOTE | 2018-05-03 09:14 | NUR ---
CIWA/COWS ASSESSMENT AND PRN VISTARIL/CLONIDINE Patient presented with flat facial expression, flushed face, anxiety, agitation, restlessness, chills, diaphoretic, CIWA-9, COWS-8. Patient was given PRN Clonidine 0.1mg PO, Vistaril 50mg PO given as ordered. Will cont to monitor and reassess the patient.
[2018-05-03] MEDS: IBUPROFEN 600 MG TABLET PO PRN ×2 (10:01→21:21)
--- NOTE | 2018-05-03 10:01 | NUR ---
PRN MOTRIN Patient c/o lower extremities pain 5/10, patient provided with non pharmacological intervention with no relief. PRN Motrin 600mg PO given as ordered. Will cont to monitor and reassess.
--- NOTE | 2018-05-03 10:14 | NUR ---
VISTARIL/CLONIDINE REASSESSMENT Per patient Vistaril and clonidine were effective in lowering s/s of withdrawal.
--- NOTE | 2018-05-03 11:01 | NUR ---
MOTRIN REASSESSMENT Per patient Motrin was effective pain lower to 2/10.
[2018-05-03 12:00] VITALS: BP 128/80
--- NOTE | 2018-05-03 12:00 | NUR ---
CIWA/COWS ASSESSMENT CIWA-8, COWS-8. Patient reported decreased in anxiety, agitation, but still feeling restless, sweats, anhedonia. Will cont to monitor.
[2018-05-03] MEDS: METHOCARBAMOL 750 MG TABLET PO PRN ×2 (15:18→23:56)
--- NOTE | 2018-05-03 15:18 | NUR ---
PRN ROBAXIN Patient came to nursing station c/o muscle spasms on the lower extremities 12/17, PRN Motrin 600mg PO given as ordered. Will cont to monitor and reassess.
[2018-05-03] MEDS ORDERED: HYDR-3895 PO (15:21)
[2018-05-03] MEDS ORDERED: CLON0.1T14 PO (15:21)
[2018-05-03] MEDS ORDERED: GABA600T PO (15:21)
[2018-05-03 16:00] VITALS: BP 121/82
--- NOTE | 2018-05-03 16:00 | NUR ---
CIWA/COWS ASSESSMENT CIWA-7,COWS-6, Patient continues to reported anxiety, agitation, restless, body aches, muscle spasms, bilateral hand tremors, increased pulse, sweats, chills. encourage patient to attend groups activities to learn new coping skills, patient verbalized understanding. Will cont to monitor.
--- NOTE | 2018-05-03 16:18 | NUR ---
ROBAXIN REASSESSMENT Per patient Robaxin was effective muscle spasms lower to 2/10.
--- NOTE | 2018-05-03 16:32 | NUR ---
PRN VISTARIL Patient c/o of increased in anxiety, agitation, restless, sweats, PRN Vistaril 50mg PO given as ordered. Will cont to monitor.
--- NOTE | 2018-05-03 17:32 | NUR ---
VISTARIL REASSESSMENT Per patient Vistaril was effective in controlling his anxiety, agitation, restless, sweats.
--- NOTE | 2018-05-03 19:08 | NUR ---
END OF SHIFT NOTE Gave report to night nurse, 32 year old male admitted for ETOH/Kratom withdrawal. Patient completed his Valium and Subutex taper tolerated well. Patient presented with anxiety, agitation, restless, fatigue, bilateral hand tremors. Patient was given his scheduled medications along with PRN Vistaril x2, Clonidine, Motrin, Robaxin noted to be effective. Patient set for discharge in AM. Patient attended group activities. Encourage PO fluids as tolerated. Last CIWA score was-7, COWS-6 . All safety measures in place, call light within reach. Patient endorse to night nurse in stable condition.
[2018-05-03 20:00] VITALS: BP 138/78
--- NOTE | 2018-05-03 20:00 | NUR ---
Start of Shift Patient noted to be increasingly anxious and verbalized intermittent episodes of "depressed mood" when he remembers a personal issue with partner. Patient is melancholic. Noted with tremors and intermittent nausea. Fall, universal, seizure and safety prec in place. Call light within reach. Latest COWS=7, CIWA=8. Will continue to monitor.
--- NOTE | 2018-05-03 21:22 | NUR ---
PRN Clonidine and Motrin Patient verbalized feeling anxiety and observed to be easily agitated. Patient also c/o pain on BLE=12/17. Administered Motrin 600 mg PO PRN. Will reassess.
--- NOTE | 2018-05-03 22:25 | NUR ---
Clonidine and Motrin reassess Patient verbalized relief from anxiety, appears less anxious and with BLE pain level=2/10.
[2018-05-03] MEDS: diphenhydrAMINE 50 MG CAPSULE PO PRN (23:56)
--- NOTE | 2018-05-03 23:57 | NUR ---
PRN Benadryl, Vistaril and Robaxin Patient c/o inability to sleep, increasing anxiety and generalized muscle pain=02/16. Administered Benadryl 50 mg PO PRN, Vistaril 50 mg PO PRN and Robaxin 750 mg PO PRN. Will reassess.
[2018-05-04] VITALS: BP 129/82
--- NOTE | 2018-05-04 | NUR ---
COWS=7, CIWA=7 Patient noted with generalized muscle pain=7/10, anxiety and tremors. Patient is melancholic and in depressed mood.
--- NOTE | 2018-05-04 00:58 | NUR ---
Benadryl Vistaril and Robaxin reassess Patient asleep on bed, no facial grimacing nor SOB noted.
[2018-05-04 04:00] VITALS: BP 124/84
--- NOTE | 2018-05-04 06:25 | NUR ---
COWS=6, CIWA=7 Patient has intermittent anxiety, with tremors and continues to be melancholic and in sad demeanor.
--- NOTE | 2018-05-04 07:28 | NUR ---
End of Shift Patient with episodes of depressed mood and intermittent anxiety. Patient verbalized that when he is alone in his room, he sometimes thinks of his ex girlfriend and feels sad and anxious. Provided education regarding ways to relax like Progressive Muscle Relaxation and guided imagery. Patient c/o intermittent nausea but does not c/o nausea at this time. Fall, universal, seizure and safety prec in place. Call light within reach. Latest COWS=6, CIWA=7, slept for 7 hours. Endorsed to AM shift nurse for continuity of care.
--- NOTE | 2018-05-04 07:40 | NUR ---
START OF SHIFT NOTE Received report from night nurse, 32 year old male admitted for ETOH/Kratom withdrawal. Patient completed his 5 days Valium and Subutex taper tolerated well. Per endorsement patient received PRN Vistaril, Clonidine, Motrin, Benadryl,Robaxin, effective per night nurse, slept for 7 hours and last CIWA score was 7, COWS-6. Received patient alert awake oriented x4 presented with anxiety, agitation, disheveled, Patient is due for schedule medications. All safety measures in place, Call light within reach. Will cont to monitor.
[2018-05-04 08:00] VITALS: BP 148/86
[2018-05-04] MEDS: MULTIVITAMINS,THERAPEUTIC TABLET PO SCH (08:29)
[2018-05-04] MEDS: HYDROXYZINE PAMOATE 25 MG CAPSULE PO PRN (08:29)
--- NOTE | 2018-05-04 08:29 | NUR ---
PRN VISTARIL Patient c/o of increased in anxiety, agitation, restless, PRN Vistaril 50mg PO given as ordered. Will cont to monitor.
[2018-05-04] MEDS: THIAMINE HCL 100 MG TABLET PO SCH (08:30)
[2018-05-04] MEDS: GABAPENTIN 300 MG CAPSULE PO SCH (08:30)
[2018-05-04] MEDS: FOLIC ACID 1 MG TABLET PO SCH (08:30)
--- NOTE | 2018-05-04 09:29 | NUR ---
VISTARIL REASSESSMENT Per patient Vistaril was effective in controlling his anxiety, agitation, restless.
--- NOTE | 2018-05-04 09:42 | NUR ---
DISCHARGE NOTE Patient is alert awake oriented discharge from [facility] in stable condition. Vital signs WNL. Skin intact warm and dry to touch. Patient denies any SI/HI. All discharge paper work completed signed and dated. All belongings returned to the patient including prescriptions. Patient discharge from [facility] to home in stable condition at 0942 on 05/04/18.
== END 2018-05-04 09:42 | disposition home or self-care (01) | DRG 895 ==
LOC: SRC 20:40
PROVIDERS: ADMIT Family Medicine Addiction Medicine; ATTEND Family Medicine Addiction Medicine
PROC: HZ2ZZZZ Detoxification Services for Substance Abuse Treatment (ICD-10-PCS; principal; 2018-04-27)
PROC: HZ31ZZZ Individual Counseling for Substance Abuse Treatment, Behavioral (ICD-10-PCS; 2018-04-29)
PROC: HZ41ZZZ Group Counseling for Substance Abuse Treatment, Behavioral (ICD-10-PCS; 2018-04-29)
DX: F10.231 Alcohol dependence with withdrawal delirium (principal); K85.90 Acute pancreatitis without necrosis or infection, unspecified; G40.509 Epileptic seizures related to external causes, not intractable, without status epilepticus; Y90.6 Blood alcohol level of 120-199 mg/100 ml; F17.210 Nicotine dependence, cigarettes, uncomplicated; G47.00 Insomnia, unspecified; F41.9 Anxiety disorder, unspecified; F11.23 Opioid dependence with withdrawal; Z81.1 Family history of alcohol abuse and dependence; F32.9 Major depressive disorder, single episode, unspecified
CPT/HCPCS: 36415; 70030-TC; 80307; 80346; 83690; 83735; 84443; 85025; 86592; 86705; 86803; 87340; 87806; G0480; J3411; Q0163